=== PATIENT | male | born 1965 | race Caucasian/White ===

== ENCOUNTER → 2017-07-10 | Outpatient (CLI) | payer BC ==
[~2017-07-10] MED LIST: CHOL100010 PO
--- NOTE | 2017-07-10 11:15 | DIAGNOSTIC IMAGING REPORT ---
RIGHT KNEE 3 VIEWS CLINICAL HISTORY: Right knee instability. Knee pain. COMPARISON: None. DISCUSSION: No acute fractures are visualized. There are mild osteoarthritic changes. There is a nonspecific calcification posterior to the joint as visualized in the lateral projection. This is not clearly visualized on the AP view. IMPRESSION: 1. Mild degenerative change 2. No destructive lesions identified 3. No acute fractures Electronically signed by: Tim Porter M.D. 07/10/2017 11:14 AM Dictated Date/Time: 07/10/2017 11:13 AM
== END | disposition home or self-care (01) ==
LOC: C.RADBC 10:35
PROVIDERS: ATTEND Internal Medicine
DX: M25.361 Other instability, right knee (principal)

== ENCOUNTER → 2017-07-28 | Outpatient (CLI) | payer BC ==
--- NOTE | 2017-07-28 15:35 | DIAGNOSTIC IMAGING REPORT ---
RIGHT KNEE MRI HISTORY: RIGHT KNEE PAIN Right COMPARISON STUDY: Right knee 07/10/2017. TECHNIQUE: Multiplanar multisequence MRI of the right knee was performed according to standard department protocol without the use of contrast. FINDINGS: Menisci: Complex tear within the body and anterior horn of the lateral meniscus. The medial meniscus is intact. The lateral meniscus is partially extruded from the joint space. Ligaments: The anterior and posterior cruciate ligaments are intact. The medial and lateral collateral ligaments are normal in appearance. Extensor mechanism: The quadriceps tendon and patellar ligament are intact. Articular cartilage and bone: No fracture or dislocation. Greater than 50% cartilage thinning within the central weightbearing portion of the lateral femoral condyle and within the lateral aspect of the tibial plateau consistent with degenerative change. There are marginal osteophytes within the lateral compartment of the knee and subchondral marrow edema within the lateral tibial plateau. This is likely due to the long-standing degenerative change. Small focal area of subchondral cystic change/marrow edema within the medial femoral condyle anteriorly. Joint effusion: None. Soft tissues: Tiny popliteal cyst. Small ganglion cyst posterior to the lateral tibial plateau. IMPRESSION: 1. Complex tear within the anterior horn and body of the lateral meniscus. 2. Moderate osteoarthritis within the lateral compartment of the knee as described above. Electronically signed by: Flavio Padilla M.D. 07/28/2017 3:34 PM Dictated Date/Time: 07/28/2017 3:26 PM
== END | disposition home or self-care (01) ==
LOC: C.MRIBC 14:32
PROVIDERS: ATTEND Orthopaedic Surgery
DX: S83.281A Other tear of lateral meniscus, current injury, right knee, initial encounter (principal); X58.XXXA Exposure to other specified factors, initial encounter